=== PATIENT | male | born 1995 | race Two or more races ===

== ENCOUNTER 2023-02-09 11:48 | Emergency (ER) | payer OTHER ==
[~2023-02-09] VITALS: Ht 182.9 cm; Wt 102.2 kg
[2023-02-09 12:33] VITALS: BP 148/89
[2023-02-09 13:54] LABS: Hepatitis B Surface Antibody Positive (Negative)
== END 2023-02-09 13:26 | disposition home or self-care (01) ==
LOC: ER 11:48
DX: Z77.21 Contact with and (suspected) exposure to potentially hazardous body fluids (principal); Z88.1 Allergy status to other antibiotic agents
CPT/HCPCS: 36415; 86703; 86706; 86803; 87340